=== PATIENT | female | born 1995 ===

== ENCOUNTER 2017-04-24 19:46 | Emergency (ER) | payer SELFPAY ==
[~2017-04-24] VITALS: Ht 170.2 cm; Wt 75.5 kg
[2017-04-24 19:48] VITALS: BP 118/65; PULSE 98; RESP 16; TEMP 99.2; O2SAT 99
--- NOTE | 2017-04-24 22:28 | PD ---
Physical Exam Date Seen by Provider: Apr 24, 2017 Time Seen by Provider: 21:47 Narrative 21-year-old female presents to the emergency department complaining of sore throat, dry cough, headache, nausea, body aches, subjective fevers for 3 days. Current pain is 7/10. Data Data Last Documented VS Vital Signs Date Time Temp Pulse Resp B/P (MAP) Pulse Ox O2 Delivery O2 Flow Rate FiO2 04/24/17 19:48 99.2 98 16 118/65 (82) 99 Room Air MDM Supervised Visit with TRACEY: No Narrative Course 21-year-old female presents to the emergency Department for cold symptoms for 3 days. Patient is initially seen in triage. She left AGAINST MEDICAL ADVICE before she can be moved to a medical bed. Diagnosis Primary Impression: Left against medical advice Additional Impression: Cough Disposition: 07 AGAINST MEDICAL ADVICE Светлана Bender Apr 24, 2017 22:28
== END 2017-04-24 21:47 | disposition left against medical advice (07) ==
LOC: NED 19:46
DX: R05 Cough (principal); Z53.21 Procedure and treatment not carried out due to patient leaving prior to being seen by health care provider
CPT/HCPCS: 99281